=== PATIENT | male | born 1995 | race Hispanic/Latino ===

== ENCOUNTER → 2024-03-06 | Emergency (ER) | payer SELFPAY ==
[~2024-03-06] VITALS: Ht 172.7 cm; Wt 83.6 kg
[~2024-03-06] MED LIST: DOXY100T21 PO; cefTRIAXone 1G VIAL IVPB ONE
[2024-03-06 21:27] LABS: BASOPHILS # (AUTO) 0.03 K/uL (0.00-0.20); BASOPHILS % (AUTO) 0.2 % (0.0-5.0); EOSINOPHILS # (AUTO) 0.08 K/uL (0.00-0.70); EOSINOPHILS % (AUTO) 0.6 % (0.0-8.0); HEMATOCRIT 44.4 % (42-54); IMMATURE GRANULOCYTE ABSOLUTE 0.06 K/uL (0-1); LYMPHOCYTES % (AUTO) 13.9 % (21.0-51.0); MEAN CORPUSCULAR HEMOGLOBIN 30.2 pg (27.0-33.0); MEAN CORPUSCULAR HGB CONC 35.1 g/dL (32.0-36.0); MONOCYTES % (AUTO) 7.3 % (3.0-13.0); NEUTROPHILS % (AUTO) 77.6 % (40.0-77.0); PLATELET COUNT (AUTO) 294 K/uL (130-400); RED BLOOD CELL COUNT(AUTO) 5.16 MIL/uL (4.50-6.20); RED CELL DISTRIBUTION WIDTH 12.1 % (11.0-15.5); WHITE BLOOD COUNT (AUTO) 14.2 K/uL (4.8-10.8)
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
[2024-03-06 21:40] VITALS: BP 159/95; PULSE 95; RESP 18; TEMP 98.6; O2SAT 99
[2024-03-06 21:40] LABS: POTASSIUM 3.6 mmol/L (3.5-5.1)
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
[2024-03-06] MEDS: teTANUS/diphthERIA TOXOID [ADULT] 0.5 ML VIAL IM ONE (22:23)
[2024-03-06] MEDS: cefTRIAXone 1G VIAL IM ONE (22:24)
[2024-03-06 22:33] LABS: ERYTHROCYTE SEDIMENTATION RATE 38 MM/HR (0-15)
== END ==
LOC: EDH 20:43
DX: S69.91XA Unspecified injury of right wrist, hand and finger(s), initial encounter (principal); L03.113 Cellulitis of right upper limb; W50.1XXA Accidental kick by another person, initial encounter; Y93.89 Activity, other specified; Y92.89 Other specified places as the place of occurrence of the external cause; Y99.8 Other external cause status
CPT/HCPCS: 99284; 80048; 85025; 85651; 87040 ×2; 83605; 36415; 90714; 73130; 96372; 90471; J0696